=== PATIENT | female | born 2000 | race Caucasian/White ===

== ENCOUNTER 2022-09-14 01:18 | Emergency (ER) | payer SELFPAY ==
[~2022-09-14] VITALS: Ht 154.9 cm; Wt 49.4 kg
--- NOTE | 2022-09-14 01:20 | NUR ---
PT [facility] ER BED 7
[2022-09-14 01:22] VITALS: BP 103/62
[2022-09-14 01:26] VITALS: BP 103/62
--- NOTE | 2022-09-14 01:26 | NUR ---
21 [place] f [place] [employer] with c/c of etoh. per medics pt may have used cocaine, not confirmed. pt denies pain and discomfort. pt is gcs 14. pt is awake for moments then falls back to sleep. no n/v at this time. pt presents with 18g to left ac. denies hx, rx and allergies
--- NOTE | 2022-09-14 01:35 | NUR ---
pt's mom arrived to knot picker cloth pt. states she drove from 1 hour away and would like to take pt home as soon as possible. sole bowens has been made aware, states he will assess pt and make a decision about discharge. mom brought back per sole bowens.
--- NOTE | 2022-09-14 01:38 | NUR ---
dr. bowens at bedside assessing pt.
--- NOTE | 2022-09-14 01:55 | NUR ---
Patient discharged with v/s stable. Written and verbal after care instructions given and explained. Patient verbalized understanding. Wheel Chair Assisted with by parent. All questions addressed prior to discharge. Advised to follow up with PMD.
== END 2022-09-14 01:55 | disposition home or self-care (01) ==
LOC: MED 01:18
DX: F10.129 Alcohol abuse with intoxication, unspecified (principal); Y90.9 Presence of alcohol in blood, level not specified
CPT/HCPCS: 99283